=== PATIENT | male | born 1930 | race Caucasian/White ===

== ENCOUNTER 2017-05-24 09:04 | Inpatient (IN) | payer MEDICARE, BC ==
[~2017-05-24] VITALS: Ht 172.7 cm; Wt 83.0 kg
[~2017-05-24 09:04] MED LIST: AMLO5TAB2 PO; ASPI81TA31 PO; ASPI81TA44 PO; BENA40TA2 PO
[2017-05-24] MEDS ORDERED: MEMANTINE HCL 10 MG TABLET PO (09:25)
[2017-05-24] MEDS ORDERED: ATORVASTATIN 20 MG TABLET PO (09:25)
[2017-05-24] MEDS ORDERED: ALPR0.25 PO (09:25)
[2017-05-24] MEDS ORDERED: HYDROCHLOROTHIAZIDE 25 MG TAB PO (09:25)
[2017-05-24] MEDS ORDERED: DONEPEZIL HCL 10 MG TABLET PO (09:25)
[2017-05-24 09:36] LABS: ABG HCO3 34.2 mmol/L; ABG PCO2 74.7 mmHg (35.0-45.0); ABG PH 7.278 (7.350-7.450); ABG PO2 68.3 mmHg (75.0-100.0); ABG SITE LEFT RADIAL; COHb 1.9 % (0.5-1.5); MetHb 0.3 % (0.0-1.5); O2Hb 89.3 % (94.0-97.0); VENT MODE Nasal Cannula
[2017-05-24 09:38] LABS: HEMOGLOBIN 12.8 g/dL (12.5-16.3); MEAN CORPUSCULAR HEMOGLOBIN 32.3 uug (23.8-33.4); RED BLOOD CELL COUNT(AUTO) 3.96 MIL/uL (4.06-5.63)
[2017-05-24 09:40] LABS: BASOPHILS % (AUTO) 0.1 % (0.0-2.0); HEMATOCRIT 38.4 % (36.7-47.1); LYMPHOCYTES # (AUTO) 0.4 K/uL (20.0-40.0); LYMPHOCYTES % (AUTO) 1.3 % (20.5-51.5); MEAN CORPUSCULAR HGB CONC 33 g/dL (32.5-36.3); MONOCYTES # (AUTO) 1.8 K/uL (2.0-10.0); MONOCYTES % (AUTO) 5.8 % (0.0-11.0); NEUTROPHILS % (AUTO) 92.8 % (38.5-71.5); PLATELET COUNT (AUTO) 211 K/uL (152-348)
[2017-05-24 09:44] LABS: WHITE BLOOD COUNT (AUTO) 31.2 K/uL (3.6-10.2)
[2017-05-24] MEDS ORDERED: AZITHROMYCIN IV 500 MG in IV DEXTROSE 5% 250 ML IV ONE (09:45)
[2017-05-24] MEDS ORDERED: CEFTRIAXONE 1 G in IV DEXTROSE 5% 50 ML IV ONE (09:45)
[2017-05-24] MEDS ORDERED: METRONIDAZOLE 500 MG/NS 100ML 100 ML IV ONE ×2 (09:45→11:26)
[2017-05-24 09:56] LABS: ALANINE AMINOTRANSFERASE 27 U/L (16-63); ALKALINE PHOSPHATASE 77 U/L (50-136); ASPARTATE AMINOTRANSFERASE 20 U/L (15-37); BILIRUBIN,DIRECT 0.2 mg/dL (0.0-0.2); BILIRUBIN,TOTAL 0.8 mg/dL (0.2-1.0); CARBON DIOXIDE 35 mmol/L (21-32); CHLORIDE 97 mmol/L (98-107); CREATININE 1.2 mg/dL (0.6-1.3); GLUCOSE 133 mg/dL (74-106); POTASSIUM 3.8 mmol/L (3.5-5.1); TOTAL PROTEIN, SERUM 7.5 g/dL (6.4-8.2); UREA NITROGEN, BLOOD 32 mg/dL (7-18)
[2017-05-24 09:57] LABS: BAND % (MANUAL) 8 % (0-10); LYMPHOCYTES % (MANUAL) 1 % (20-40); METAMYELOCYTES % 2 % (0-1); MONOCYTES % (MANUAL) 3 % (2-10); MYELOCYTES % 1 % (0-0)
[2017-05-24 09:58] LABS: NEUTROPHILS % (MANUAL) 85 % (42-75)
[2017-05-24] MEDS ORDERED: CEFTRIAXONE 1 G VIAL ONE ×2 (10:32→23:04)
[2017-05-24] MEDS ORDERED: IV NORMAL SALINE 1000 ML BAG IV ONE (10:45)
[2017-05-24] MEDS ORDERED: AZITHROMYCIN 500 MG VIAL IV ONE ×2 (12:40→23:04)
[2017-05-24 15:49] LABS: *BILIRUBIN,URIN NEGATIVE (NEGATIVE); *BLOOD, URINE NEGATIVE (NEGATIVE); *CLARITY,URINE CLEAR (CLEAR); *COLOR,URINE DARK YELLOW (YELLOW); *KETONES,URINE NEGATIVE (NEGATIVE); *PROTEIN,URINE 1+ (NEGATIVE); *UROBILINOGEN,URINE 0.2 E.U./dl (NORMAL); LEUKOCYTE ESTERASE ,URINE NEGATIVE (NEGATIVE); NITRITE, URINE NEGATIVE (NEGATIVE); UGLUCOSE NEGATIVE (NEGATIVE)
[2017-05-24 16:12] LABS: MUCUS,URINE MANY /LPF (0-FEW); RBC,URINE 0-3 /HPF (0-3); WBC,URINE 0-3 /HPF (0-3)
[2017-05-24 20:10] VITALS: BP 153/73
[2017-05-24] MEDS ORDERED: ACETAMINOPHEN 325 MG TABLET PO PRN (21:15)
[2017-05-24] MEDS ORDERED: MORPHINE SULFATE 2 MG/1 ML DISP.SYRIN IV PRN (21:15)
[2017-05-24] MEDS ORDERED: CEFTRIAXONE 1 G in IV DEXTROSE 5% 50 ML IV SCH (21:15)
[2017-05-24] MEDS ORDERED: ONDANSETRON 4 MG/2 ML VIAL IV PRN (21:15)
[2017-05-24] MEDS ORDERED: ALBUTEROL SULFATE 2.5 MG/3 ML NEBU NEB PRN (21:15)
[2017-05-24] MEDS ORDERED: ENALAPRILAT DIHYDRATE INJ 2.5 MG in IV NORMAL SALINE 50 ML IV PRN (21:15)
[2017-05-24] MEDS: AZITHROMYCIN IV 500 MG in IV DEXTROSE 5% 250 ML IV SCH (23:07)
[2017-05-25] VITALS: BP 111/55
[2017-05-25 04:00] VITALS: BP 130/63
[2017-05-25 06:46] LABS: BASOPHILS % (AUTO) 0.1 % (0.0-2.0); HEMATOCRIT 39.6 % (36.7-47.1); HEMOGLOBIN 12.9 g/dL (12.5-16.3); LYMPHOCYTES # (AUTO) 0.7 K/uL (20.0-40.0); LYMPHOCYTES % (AUTO) 2.5 % (20.5-51.5); MEAN CORPUSCULAR HEMOGLOBIN 31.9 uug (23.8-33.4); MEAN CORPUSCULAR HGB CONC 33 g/dL (32.5-36.3); MEAN CORPUSCULAR VOLUME 98.1 fL (73.0-96.2); MONOCYTES # (AUTO) 1.3 K/uL (2.0-10.0); MONOCYTES % (AUTO) 4.7 % (0.0-11.0); NEUTROPHILS # (AUTO) 26.2 K/uL (1.8-8.9); NEUTROPHILS % (AUTO) 92.7 % (38.5-71.5); PLATELET COUNT (AUTO) 192 K/uL (152-348); RED BLOOD CELL COUNT(AUTO) 4.04 MIL/uL (4.06-5.63); WHITE BLOOD COUNT (AUTO) 28.2 K/uL (3.6-10.2)
[2017-05-25] MEDS: PANTOPRAZOLE SODIUM 40 MG TABLET.DR PO SCH (07:00)
[2017-05-25 07:20] LABS: ALANINE AMINOTRANSFERASE 22 U/L (16-63); ALKALINE PHOSPHATASE 81 U/L (50-136); ASPARTATE AMINOTRANSFERASE 17 U/L (15-37); BILIRUBIN,TOTAL 0.5 mg/dL (0.2-1.0); CARBON DIOXIDE 32 mmol/L (21-32); CHLORIDE 102 mmol/L (98-107); CHOLESTEROL 107 mg/dL (<200); CREATININE 0.9 mg/dL (0.6-1.3); GLUCOSE 117 mg/dL (74-106); HDL CHOLESTEROL 53 mg/dL (40-60); MAGNESIUM 2.3 mg/dL (1.8-2.4); PHOSPHOROUS 3.2 mg/dL (2.5-4.9); POTASSIUM 4.1 mmol/L (3.5-5.1); TOTAL PROTEIN, SERUM 7.4 g/dL (6.4-8.2); TRIGLYCERIDES 51 MG/DL (30-150); UREA NITROGEN, BLOOD 28 mg/dL (7-18)
[2017-05-25 07:26] LABS: THYROID STIMULATING HORMONE 1.731 mIU/mL (0.358-3.740)
[2017-05-25] MEDS ORDERED: MORPHINE SULFATE 4 MG/1 ML DISP.SYRIN IV PRN (08:15)
[2017-05-25 10:02] LABS: BAND % (MANUAL) 13 % (0-10); LYMPHOCYTES % (MANUAL) 3 % (20-40); MONOCYTES % (MANUAL) 5 % (2-10); NEUTROPHILS % (MANUAL) 79 % (42-75)
[2017-05-25 11:43] VITALS: BP 145/67
[2017-05-25 15:28] VITALS: BP 138/73
[2017-05-25] MEDS: FUROSEMIDE 20 MG/2 ML VIAL IV SCH (17:35)
[2017-05-25 19:00] VITALS: BP 132/72
[2017-05-25] MEDS: LACTOBACILLUS RHAMNOSUS GG 1 EACH CAPSULE PO SCH (20:53)
[2017-05-25] MEDS: AZITHROMYCIN IV 500 MG in IV DEXTROSE 5% 250 ML IV SCH (20:53)
[2017-05-25] MEDS: DOCUSATE SODIUM 100 MG CAPSULE PO SCH (20:53)
[2017-05-25] MEDS ORDERED: DOCUSATE SODIUM 250 MG CAPSULE PO SCH (21:00)
[2017-05-25] MEDS: CEFTRIAXONE 1 G in IV DEXTROSE 5% 50 ML IV SCH (22:22)
[2017-05-25 22:35] LABS: ABG BASE EXCESS 6.4 mmol/L; ABG HCO3 34.9 mmol/L; ABG PH 7.309 (7.350-7.450); ABG PO2 62.4 mmHg (75.0-100.0); ABG SITE LEFT RADIAL; ABG TOTAL HEMOGLOBIN 12.3 G/dL (13.5-18.0); COHb 1.6 % (0.5-1.5); MetHb 0.2 % (0.0-1.5); VENT MODE BIPAP
[2017-05-26 04:00] VITALS: BP 139/91
[2017-05-26] MEDS: PANTOPRAZOLE SODIUM 40 MG TABLET.DR PO SCH (05:58)
[2017-05-26 06:18] LABS: ABG BASE EXCESS 2.6 mmol/L; ABG HCO3 30.8 mmol/L; ABG PCO2 65.8 mmHg (35.0-45.0); ABG PH 7.288 (7.350-7.450); ABG PO2 81.1 mmHg (75.0-100.0); ABG SITE LEFT RADIAL; ABG TOTAL HEMOGLOBIN 12.4 G/dL (13.5-18.0); COHb 1.4 % (0.5-1.5); MetHb 0.2 % (0.0-1.5); O2Hb 94.3 % (94.0-97.0); VENT MODE BIPAP
[2017-05-26 06:29] LABS: BASOPHILS % (AUTO) 0.1 % (0.0-2.0); HEMATOCRIT 37.1 % (36.7-47.1); HEMOGLOBIN 12.3 g/dL (12.5-16.3); LYMPHOCYTES # (AUTO) 0.6 K/uL (20.0-40.0); LYMPHOCYTES % (AUTO) 2.7 % (20.5-51.5); MEAN CORPUSCULAR HEMOGLOBIN 32.3 uug (23.8-33.4); MEAN CORPUSCULAR HGB CONC 33 g/dL (32.5-36.3); MEAN CORPUSCULAR VOLUME 97.9 fL (73.0-96.2); MONOCYTES % (AUTO) 4.6 % (0.0-11.0); NEUTROPHILS # (AUTO) 19.7 K/uL (1.8-8.9); NEUTROPHILS % (AUTO) 92.6 % (38.5-71.5); PLATELET COUNT (AUTO) 188 K/uL (152-348); RED BLOOD CELL COUNT(AUTO) 3.79 MIL/uL (4.06-5.63); WHITE BLOOD COUNT (AUTO) 21.3 K/uL (3.6-10.2)
[2017-05-26 06:39] LABS: CARBON DIOXIDE 39 mmol/L (21-32); CHLORIDE 102 mmol/L (98-107); CREATININE 0.9 mg/dL (0.6-1.3); GLUCOSE 106 mg/dL (74-106); MAGNESIUM 2.5 mg/dL (1.8-2.4); PHOSPHOROUS 2.8 mg/dL (2.5-4.9); POTASSIUM 3.8 mmol/L (3.5-5.1); UREA NITROGEN, BLOOD 31 mg/dL (7-18)
[2017-05-26] MEDS: FUROSEMIDE 20 MG/2 ML VIAL IV SCH (08:15)
[2017-05-26] MEDS: LACTOBACILLUS RHAMNOSUS GG 1 EACH CAPSULE PO SCH ×2 (08:58→21:24)
[2017-05-26] MEDS: ASPIRIN EC 81 MG TABLET.DR PO SCH (08:58)
[2017-05-26 11:39] VITALS: BP 127/71
[2017-05-26 20:00] VITALS: BP 120/73
[2017-05-26] MEDS: DOCUSATE SODIUM 100 MG CAPSULE PO SCH (21:25)
[2017-05-26] MEDS: AZITHROMYCIN IV 500 MG in IV DEXTROSE 5% 250 ML IV SCH (21:25)
[2017-05-26] MEDS: CEFTRIAXONE 1 G in IV DEXTROSE 5% 50 ML IV SCH (22:41)
[2017-05-27 04:08] VITALS: BP 118/88
[2017-05-27] MEDS: PANTOPRAZOLE SODIUM 40 MG TABLET.DR PO SCH (06:44)
[2017-05-27 07:03] LABS: BASOPHILS % (AUTO) 0.2 % (0.0-2.0); EOSINOPHILS % (AUTO) 0.4 % (0.0-7.0); HEMATOCRIT 36.3 % (36.7-47.1); HEMOGLOBIN 11.8 g/dL (12.5-16.3); LYMPHOCYTES # (AUTO) 0.5 K/uL (20.0-40.0); LYMPHOCYTES % (AUTO) 4.2 % (20.5-51.5); MEAN CORPUSCULAR HEMOGLOBIN 31.8 uug (23.8-33.4); MEAN CORPUSCULAR HGB CONC 33 g/dL (32.5-36.3); MEAN CORPUSCULAR VOLUME 97.6 fL (73.0-96.2); MONOCYTES # (AUTO) 0.7 K/uL (2.0-10.0); MONOCYTES % (AUTO) 5.5 % (0.0-11.0); NEUTROPHILS # (AUTO) 11.1 K/uL (1.8-8.9); NEUTROPHILS % (AUTO) 89.7 % (38.5-71.5); PLATELET COUNT (AUTO) 205 K/uL (152-348); RED BLOOD CELL COUNT(AUTO) 3.72 MIL/uL (4.06-5.63); WHITE BLOOD COUNT (AUTO) 12.4 K/uL (3.6-10.2)
[2017-05-27 07:18] LABS: ALANINE AMINOTRANSFERASE 23 U/L (16-63); ALKALINE PHOSPHATASE 67 U/L (50-136); ASPARTATE AMINOTRANSFERASE 19 U/L (15-37); BILIRUBIN,TOTAL 0.3 mg/dL (0.2-1.0); CARBON DIOXIDE 39 mmol/L (21-32); CHLORIDE 103 mmol/L (98-107); CREATININE 0.7 mg/dL (0.6-1.3); GLUCOSE 110 mg/dL (74-106); MAGNESIUM 2.1 mg/dL (1.8-2.4); PHOSPHOROUS 2.2 mg/dL (2.5-4.9); POTASSIUM 3.8 mmol/L (3.5-5.1); TOTAL PROTEIN, SERUM 6.2 g/dL (6.4-8.2); UREA NITROGEN, BLOOD 29 mg/dL (7-18)
[2017-05-27] MEDS: FUROSEMIDE 20 MG/2 ML VIAL IV SCH (09:07)
[2017-05-27] MEDS: ASPIRIN EC 81 MG TABLET.DR PO SCH (09:07)
[2017-05-27] MEDS: LACTOBACILLUS RHAMNOSUS GG 1 EACH CAPSULE PO SCH ×2 (09:07→20:29)
[2017-05-27] MEDS ORDERED: POTASSIUM PHOSPHATE MM 7.5 MMOL in IV DEXTROSE 5% 100 ML IV ONE (13:00)
[2017-05-27 13:33] VITALS: BP 155/71
[2017-05-27 16:16] VITALS: BP 135/81
[2017-05-27 20:00] VITALS: BP 123/84
[2017-05-27] MEDS: DOCUSATE SODIUM 100 MG CAPSULE PO SCH (20:29)
[2017-05-27] MEDS: AZITHROMYCIN IV 500 MG in IV DEXTROSE 5% 250 ML IV SCH (20:29)
[2017-05-27] MEDS: CEFTRIAXONE 1 G in IV DEXTROSE 5% 50 ML IV SCH (22:09)
[2017-05-28 04:00] VITALS: BP 151/77
[2017-05-28] MEDS: PANTOPRAZOLE SODIUM 40 MG TABLET.DR PO SCH (05:10)
[2017-05-28 06:48] LABS: BASOPHILS % (AUTO) 0.1 % (0.0-2.0); EOSINOPHILS # (AUTO) 0.1 K/uL (0.0-0.7); EOSINOPHILS % (AUTO) 1.3 % (0.0-7.0); HEMATOCRIT 36.3 % (36.7-47.1); LYMPHOCYTES # (AUTO) 0.6 K/uL (20.0-40.0); LYMPHOCYTES % (AUTO) 5.9 % (20.5-51.5); MEAN CORPUSCULAR HEMOGLOBIN 32.2 uug (23.8-33.4); MEAN CORPUSCULAR HGB CONC 33 g/dL (32.5-36.3); MEAN CORPUSCULAR VOLUME 97.5 fL (73.0-96.2); MONOCYTES # (AUTO) 0.7 K/uL (2.0-10.0); MONOCYTES % (AUTO) 6.9 % (0.0-11.0); NEUTROPHILS # (AUTO) 8.7 K/uL (1.8-8.9); NEUTROPHILS % (AUTO) 85.8 % (38.5-71.5); PLATELET COUNT (AUTO) 199 K/uL (152-348); RED BLOOD CELL COUNT(AUTO) 3.72 MIL/uL (4.06-5.63); WHITE BLOOD COUNT (AUTO) 10.2 K/uL (3.6-10.2)
[2017-05-28 06:50] LABS: CHLORIDE 102 mmol/L (98-107); CREATININE 0.6 mg/dL (0.6-1.3); GLUCOSE 102 mg/dL (74-106); MAGNESIUM 1.9 mg/dL (1.8-2.4); PHOSPHOROUS 2.2 mg/dL (2.5-4.9); POTASSIUM 3.5 mmol/L (3.5-5.1); UREA NITROGEN, BLOOD 22 mg/dL (7-18)
[2017-05-28 07:08] LABS: CARBON DIOXIDE 40 mmol/L (21-32)
[2017-05-28 07:32] VITALS: BP 154/79
[2017-05-28 08:53] LABS: ABG HCO3 44.2 mmol/L; ABG PCO2 72.7 mmHg (35.0-45.0); ABG PH 7.402 (7.350-7.450); ABG PO2 69.1 mmHg (75.0-100.0); ABG SITE LEFT RADIAL; ABG TOTAL HEMOGLOBIN 12.9 G/dL (13.5-18.0); COHb 1.8 % (0.5-1.5); MetHb 0.1 % (0.0-1.5); O2Hb 92.2 % (94.0-97.0); VENT MODE Nasal Cannula
[2017-05-28] MEDS: ASPIRIN EC 81 MG TABLET.DR PO SCH (08:57)
[2017-05-28] MEDS: FUROSEMIDE 20 MG/2 ML VIAL IV SCH (08:57)
[2017-05-28] MEDS: LACTOBACILLUS RHAMNOSUS GG 1 EACH CAPSULE PO SCH ×2 (08:57→21:24)
[2017-05-28] MEDS: POTASSIUM CHLORIDE 20 MEQ TAB.PRT.SR PO SCH ×3 (11:17→20:00)
[2017-05-28 11:23] VITALS: BP 146/72
[2017-05-28] MEDS: POTASSIUM PHOSPHATE MM 7.5 MMOL in IV DEXTROSE 5% 100 ML IV SCH ×2 (11:23→14:35)
[2017-05-28] MEDS ORDERED: POTASSIUM PHOSPHATE MM 7.5 MMOL in IV DEXTROSE 5% 100 ML IV ONE (12:45)
[2017-05-28] MEDS: ACETAzolamide SODIUM 500 MG VIAL IV SCH (12:50)
[2017-05-28 15:10] VITALS: BP 155/71
[2017-05-28] MEDS ORDERED: DIATR MEGLU/DIATRIZOATE SODIUM 30 ML SOLUTION ONE (17:53)
[2017-05-28] MEDS ORDERED: IOHEXOL 300MG/ML 100 ML INFUS..BTL ONE (18:20)
[2017-05-28] MEDS ORDERED: IV NORMAL SALINE 250 ML IV ONE (18:20)
[2017-05-28] MEDS ORDERED: NORMAL SALINE FLUSH 10 ML DISP.SYRIN ONE (18:20)
[2017-05-28 20:00] VITALS: BP 160/84
[2017-05-28] MEDS: DOCUSATE SODIUM 100 MG CAPSULE PO SCH ×2 (21:57→21:58)
[2017-05-28] MEDS: AZITHROMYCIN IV 500 MG in IV DEXTROSE 5% 250 ML IV SCH (22:12)
[2017-05-28] MEDS: CEFTRIAXONE 1 G in IV DEXTROSE 5% 50 ML IV SCH (23:33)
[2017-05-29 04:55] VITALS: BP 165/84
[2017-05-29] MEDS: PANTOPRAZOLE SODIUM 40 MG TABLET.DR PO SCH (06:28)
[2017-05-29 07:05] LABS: BASOPHILS % (AUTO) 0.2 % (0.0-2.0); EOSINOPHILS # (AUTO) 0.2 K/uL (0.0-0.7); EOSINOPHILS % (AUTO) 2.2 % (0.0-7.0); LYMPHOCYTES # (AUTO) 0.8 K/uL (20.0-40.0); LYMPHOCYTES % (AUTO) 7.7 % (20.5-51.5); MEAN CORPUSCULAR HEMOGLOBIN 32.5 uug (23.8-33.4); MEAN CORPUSCULAR HGB CONC 34 g/dL (32.5-36.3); MONOCYTES # (AUTO) 0.6 K/uL (2.0-10.0); MONOCYTES % (AUTO) 5.3 % (0.0-11.0); NEUTROPHILS # (AUTO) 8.9 K/uL (1.8-8.9); NEUTROPHILS % (AUTO) 84.6 % (38.5-71.5); PLATELET COUNT (AUTO) 217 K/uL (152-348); RED BLOOD CELL COUNT(AUTO) 4.15 MIL/uL (4.06-5.63); WHITE BLOOD COUNT (AUTO) 10.5 K/uL (3.6-10.2)
[2017-05-29 07:09] LABS: CARBON DIOXIDE 34 mmol/L (21-32); CHLORIDE 101 mmol/L (98-107); CREATININE 0.7 mg/dL (0.6-1.3); GLUCOSE 102 mg/dL (74-106); PHOSPHOROUS 2.9 mg/dL (2.5-4.9); POTASSIUM 3.8 mmol/L (3.5-5.1); UREA NITROGEN, BLOOD 15 mg/dL (7-18)
[2017-05-29 07:20] LABS: HEMATOCRIT 40.3 % (36.7-47.1)
[2017-05-29 07:21] LABS: HEMOGLOBIN 13.5 g/dL (12.5-16.3)
[2017-05-29] MEDS: FUROSEMIDE 20 MG/2 ML VIAL IV SCH (08:48)
[2017-05-29] MEDS: LACTOBACILLUS RHAMNOSUS GG 1 EACH CAPSULE PO SCH (08:48)
[2017-05-29] MEDS: ASPIRIN EC 81 MG TABLET.DR PO SCH (08:48)
[2017-05-29 09:08] LABS: ABG BASE EXCESS 4.7 mmol/L; ABG HCO3 32.3 mmol/L; ABG PCO2 61.3 mmHg (35.0-45.0); ABG PO2 70.3 mmHg (75.0-100.0); ABG SITE RIGHT RADIAL; ABG TOTAL HEMOGLOBIN 13.9 G/dL (13.5-18.0); COHb 1.8 % (0.5-1.5); MetHb 0.2 % (0.0-1.5)
[2017-05-29] MEDS: ACETAzolamide SODIUM 500 MG VIAL IV SCH (10:05)
[2017-05-29 11:40] VITALS: BP 140/76
[2017-05-29 15:22] VITALS: BP 162/73
[2017-05-29] MEDS ORDERED: AMLODIPINE 5 MG TABLET PO SCH (15:45)
[2017-05-29 15:52] VITALS: BP 100/57
[2017-05-29] MEDS ORDERED: LACT1CAP57 PO (17:07)
[2017-05-29] MEDS ORDERED: ALPR0.255 PO (17:07)
[2017-05-29] MEDS ORDERED: ALBU2.5V7 NEB (17:07)
[2017-05-29] MEDS ORDERED: HYDR-4076 PO (17:07)
[2017-05-29] MEDS ORDERED: PANT40TA2 PO (17:07)
[2017-05-29] MEDS ORDERED: DOCU100C36 PO (17:07)
[2017-05-29] MEDS ORDERED: FURO-152 PO (17:07)
[2017-05-29] MEDS ORDERED: ACET325T53 PO (17:07)
[2017-05-29] MEDS ORDERED: BENAZEPRIL PO (17:07)
[2017-05-29] MEDS ORDERED: ACET500C43 PO (17:07)
[2017-05-29] MEDS ORDERED: MULT1TAB73 PO (17:07)
[2017-05-29] MEDS ORDERED: ACID1TAB4 PO (17:07)
[2017-05-29] MEDS ORDERED: BISA10SU61 RC (17:07)
[2017-05-29] MEDS ORDERED: ASPI-618 PO (17:07)
[2017-05-29] MEDS ORDERED: AZIT500V8 IV (17:07)
[2017-05-29] MEDS ORDERED: CEFT1VIA15 IV (17:07)
[2017-05-29] MEDS ORDERED: ATOR10TA PO (17:07)
== END 2017-05-29 19:38 | DRG 871 ==
LOC: ER 09:04 → TELE 20:06 → MED 05-25 16:50
PROVIDERS: ADMIT Internal Medicine; ATTEND Internal Medicine
PROC: 5A09457 Assistance with Respiratory Ventilation, 24-96 Consecutive Hours, Continuous Positive Airway Pressure (ICD-10-PCS; principal; 2017-05-24)
PROC: 5A09357 Assistance with Respiratory Ventilation, Less than 24 Consecutive Hours, Continuous Positive Airway Pressure (ICD-10-PCS; 2017-05-25)
DX: A41.9 Sepsis, unspecified organism (principal); J69.0 Pneumonitis due to inhalation of food and vomit; I21.A1 Myocardial infarction type 2; E43 Unspecified severe protein-calorie malnutrition; J96.21 Acute and chronic respiratory failure with hypoxia; I50.33 Acute on chronic diastolic (congestive) heart failure; G92 Toxic encephalopathy; J96.22 Acute and chronic respiratory failure with hypercapnia; J98.11 Atelectasis; D68.59 Other primary thrombophilia; E87.3 Alkalosis; W18.30XA Fall on same level, unspecified, initial encounter; G30.9 Alzheimer's disease, unspecified; F02.80 Dementia in other diseases classified elsewhere, unspecified severity, without behavioral disturbance, psychotic disturbance, mood disturbance, and anxiety; J44.9 Chronic obstructive pulmonary disease, unspecified; Z68.27 Body mass index [BMI] 27.0-27.9, adult; G47.33 Obstructive sleep apnea (adult) (pediatric); I67.2 Cerebral atherosclerosis; N40.0 Benign prostatic hyperplasia without lower urinary tract symptoms; R32 Unspecified urinary incontinence; R07.81 Pleurodynia; Y92.230 Patient room in hospital as the place of occurrence of the external cause; I25.2 Old myocardial infarction; I25.10 Atherosclerotic heart disease of native coronary artery without angina pectoris; Z74.09 Other reduced mobility; E78.5 Hyperlipidemia, unspecified; D64.9 Anemia, unspecified; D32.9 Benign neoplasm of meninges, unspecified; Z79.899 Other long term (current) drug therapy; Z79.82 Long term (current) use of aspirin; M19.90 Unspecified osteoarthritis, unspecified site; I11.0 Hypertensive heart disease with heart failure
CPT/HCPCS: 36415; 36600; 70030-TC; 70450; 71045; 71101; 74018; 83605; 83735; 84100; 84443; 85025; 87040; 87086; 87400; 93005; 93307; 94660; 94664; 97116; 97530; A4663; J0456; J0696; J1120; J1940; J3490; J7030; J7050; J7060; Q9963; Q9967

== ENCOUNTER 2017-05-29 19:01 | Inpatient (IN) | payer MEDICARE, BC ==
[~2017-05-29] VITALS: Ht 172.7 cm; Wt 83.0 kg
[~2017-05-29 19:01] MED LIST changes: +ACET325T53 PO; +ACET500C43 PO; +ACID1TAB4 PO; +ALBU2.5V7 NEB; +ALPR0.25 PO; +ALPR0.255 PO; +ASPI-618 PO; -ASPI81TA31 PO; +ATOR10TA PO; +ATORVASTATIN 20 MG TABLET PO; +AZIT500V8 IV; +BENAZEPRIL PO; +BISA10SU61 RC; +CEFT1VIA15 IV; +DOCU100C36 PO; +DONEPEZIL HCL 10 MG TABLET PO; +FURO-152 PO; +HYDR-4076 PO; +HYDROCHLOROTHIAZIDE 25 MG TAB PO; +LACT1CAP57 PO; +MEMANTINE HCL 10 MG TABLET PO; +MULT1TAB73 PO; +PANT40TA2 PO
[2017-05-29 19:39] VITALS: BP 132/53
--- NOTE | 2017-05-29 19:40 | NUR ---
Receive patient via from [facility] via gurney, awake, confused but verbally responsive. Provided routine admission. Physical assessment done. Noted to have edema on both ankle. Vital signs taken and recorded, WNL.Patient came without oxygen, O2 sat @ 87-88%. MD Dr. Romero made aware of the admission and the status of the patient and ordered @2LPM via NC. O2 checked again with saturation of 95%. Denies of any pain at this time. Safety measures provided, bed on low position. 1:1 Sitter at bedside. Will monitor patient.
[2017-05-29] MEDS ORDERED: ACIDOPHILUS/BULGARICUS CHEW TAB PO SCH (21:00)
[2017-05-29] MEDS ORDERED: ACETAMINOPHEN 325 MG TABLET PO PRN (21:00)
[2017-05-29] MEDS: DOCUSATE SODIUM 100 MG CAPSULE PO SCH (21:00)
[2017-05-29] MEDS ORDERED: hydrALAZINE HCL 25 MG TABLET PO PRN (21:00)
[2017-05-29] MEDS ORDERED: ALPRAZOLAM 0.25 MG TABLET PO PRN (21:00)
[2017-05-29] MEDS ORDERED: DONEPEZIL HCL 10 MG PO SCH (21:00)
[2017-05-29] MEDS ORDERED: BISACODYL 10 MG SUPP.RECT RC PRN (21:00)
--- NOTE | 2017-05-29 22:00 | NUR ---
Due to MD order pt placed on BiPAP with the following settings of I-15, E-5, PS-10, RR-14, FIO2-30%. No respiratory distress noted. Cont. pulse ox on. Mopilex placed under the mask. Alarms on and audible. MARCI Torres notified.
[2017-05-29] MEDS: ATORVASTATIN 10 MG TABLET PO SCH (22:12)
[2017-05-29] MEDS: LACTOBACILLUS RHAMNOSUS GG 1 EACH CAPSULE PO SCH (22:12)
[2017-05-29] MEDS ORDERED: ATORVASTATIN 10 MG TABLET ONE (22:23)
[2017-05-29] MEDS ORDERED: LACTOBACILLUS RHAMNOSUS GG 1 EACH CAPSULE ONE (22:24)
[2017-05-30] MEDS: PANTOPRAZOLE SODIUM 40 MG TABLET.DR PO SCH (06:33)
[2017-05-30] MEDS ORDERED: PANTOPRAZOLE SODIUM 40 MG TABLET.DR PO ONE (06:53)
[2017-05-30] MEDS: BENAZEPRIL HCL 10 MG TABLET PO SCH (08:59)
[2017-05-30] MEDS: LACTOBACILLUS RHAMNOSUS GG 1 EACH CAPSULE PO SCH ×2 (08:59→21:04)
[2017-05-30] MEDS ORDERED: Medication Not On Formulary EA (Multivitamins (Multivitamin) 1 EACH) PO SCH (09:00)
[2017-05-30] MEDS ORDERED: AZITHROMYCIN IV 500 MG in IV DEXTROSE 5% 250 ML IV SCH (09:00)
[2017-05-30] MEDS ORDERED: BENAZEPRIL 10 MG PO SCH (09:00)
[2017-05-30] MEDS ORDERED: MEMANTINE HCL 10 MG PO SCH (09:00)
[2017-05-30] MEDS ORDERED: AZITHROMYCIN 500 MG VIAL IV SCH (09:00)
[2017-05-30] MEDS: MULTIVITAMINS,THERAPEUTIC TABLET PO SCH (09:01)
[2017-05-30] MEDS: FUROSEMIDE 20 MG TABLET PO SCH (09:01)
[2017-05-30] MEDS: ASPIRIN EC 81 MG TABLET.DR PO SCH (09:02)
[2017-05-30] MEDS: AMLODIPINE 5 MG TABLET PO SCH (09:13)
[2017-05-30] MEDS: MEMANTINE HCL 10 MG TABLET PO SCH ×2 (09:18→21:05)
[2017-05-30] MEDS ORDERED: AZITHROMYCIN IV SCH ×2 (12:24→12:25)
[2017-05-30] MEDS ORDERED: NORMAL SALINE IV SCH ×2 (12:24→12:25)
[2017-05-30] MEDS: CEFTRIAXONE 1 G in IV NORMAL SALINE 50 ML IV SCH (13:30)
--- NOTE | 2017-05-30 21:00 | NUR ---
Received patient laying in bed, asleep but arouses easily when called by name. Vital signs taken and recorded. Breathing even and nonlabored. On O2 at 2LPM via NC on 94% saturation. Safety measures provided. 1:1 sitter at bedside. will continue to monitor the patient.
[2017-05-30] MEDS: DONEPEZIL 10 MG TABLET PO SCH (21:04)
[2017-05-30] MEDS: DOCUSATE SODIUM 100 MG CAPSULE PO SCH (21:04)
[2017-05-30] MEDS: ATORVASTATIN 10 MG TABLET PO SCH (21:05)
[2017-05-30 22:04] VITALS: BP 121/80
[2017-05-31] MEDS: PANTOPRAZOLE SODIUM 40 MG TABLET.DR PO SCH (06:37)
[2017-05-31 07:30] VITALS: BP 119/54
[2017-05-31 08:08] LABS: ALANINE AMINOTRANSFERASE 15 U/L (16-63); ALKALINE PHOSPHATASE 69 U/L (50-136); ASPARTATE AMINOTRANSFERASE 17 U/L (15-37); BILIRUBIN,TOTAL 0.3 mg/dL (0.2-1.0); CARBON DIOXIDE 33 mmol/L (21-32); CHLORIDE 98 mmol/L (98-107); CREATININE 0.8 mg/dL (0.6-1.3); GLUCOSE 107 mg/dL (74-106); MAGNESIUM 2.1 mg/dL (1.8-2.4); PHOSPHOROUS 2.8 mg/dL (2.5-4.9); POTASSIUM 3.3 mmol/L (3.5-5.1); TOTAL PROTEIN, SERUM 6.2 g/dL (6.4-8.2); UREA NITROGEN, BLOOD 25 mg/dL (7-18)
[2017-05-31 08:26] LABS: BASOPHILS % (AUTO) 0.1 % (0.0-2.0); EOSINOPHILS # (AUTO) 0.1 K/uL (0.0-0.7); HEMATOCRIT 37.1 % (36.7-47.1); HEMOGLOBIN 12.3 g/dL (12.5-16.3); LYMPHOCYTES # (AUTO) 0.6 K/uL (20.0-40.0); LYMPHOCYTES % (AUTO) 5.7 % (20.5-51.5); MEAN CORPUSCULAR HGB CONC 33 g/dL (32.5-36.3); MEAN CORPUSCULAR VOLUME 96.5 fL (73.0-96.2); MONOCYTES # (AUTO) 0.5 K/uL (2.0-10.0); MONOCYTES % (AUTO) 4.7 % (0.0-11.0); NEUTROPHILS # (AUTO) 9.5 K/uL (1.8-8.9); NEUTROPHILS % (AUTO) 88.5 % (38.5-71.5); PLATELET COUNT (AUTO) 231 K/uL (152-348); RED BLOOD CELL COUNT(AUTO) 3.85 MIL/uL (4.06-5.63); WHITE BLOOD COUNT (AUTO) 10.8 K/uL (3.6-10.2)
[2017-05-31] MEDS: LACTOBACILLUS RHAMNOSUS GG 1 EACH CAPSULE PO SCH ×2 (09:14→20:34)
[2017-05-31] MEDS: MEMANTINE HCL 10 MG TABLET PO SCH ×2 (09:14→20:34)
[2017-05-31] MEDS: ASPIRIN EC 81 MG TABLET.DR PO SCH (09:14)
[2017-05-31] MEDS: MULTIVITAMINS,THERAPEUTIC TABLET PO SCH (09:14)
[2017-05-31] MEDS: FUROSEMIDE 20 MG TABLET PO SCH (09:14)
[2017-05-31] MEDS: BENAZEPRIL HCL 10 MG TABLET PO SCH (09:16)
[2017-05-31] MEDS: AMLODIPINE 5 MG TABLET PO SCH (09:17)
[2017-05-31] MEDS: CEFTRIAXONE 1 G in IV NORMAL SALINE 50 ML IV SCH (09:44)
[2017-05-31] MEDS: POTASSIUM CHLORIDE 20 MEQ TAB.PRT.SR PO SCH ×2 (11:44→17:12)
--- NOTE | 2017-05-31 13:51 | NUR ---
SBAR report received, board updated. Pt assessed, awake, alert, and oriented x2. Pt reports no pain or discomfort, with no acute distress noted. Pt is breathing with ease on 2L O2 via NC at 99%. Pt compliant with all routine morning medications, taking pills whole. IV flushed patent, and intact. Bed in locked and lowest position with side rails up x2. Pt actively participated with all scheduled therapies for today. All safety and comfort measures met. 1:1 sitter present at bedside. Call light within reach. Diaper changed for voiding x1. Will continue to monitor.
--- NOTE | 2017-05-31 16:00 | NUR ---
ADMIT NOTE ARRIVED TO UNIT VIA AMBULANCE. ALONG WITH PT. TAKEN TO ROOM ORIENTED TO UNIT AND SURROUNDINGS. AMBULATORY WITH ASSISTANCE. VITAL SIGNS STABLE
--- NOTE | 2017-05-31 19:30 | NUR ---
Received patient from day shift nurse. shift report at bedside. patient is a/ox 2-3 with no signs of pain, sob, or acute distress at start of shift. vital signs stable at start of shift. pertinent assessment completed. on o2 2L via nc with HOB elevated. bed in low position x2 side rails up. bed alarm checked and on at start of shift. sitter at bedside. call light placed within reach of pt. will continue to monitor pt through shift.
[2017-05-31 20:17] VITALS: BP 115/60
[2017-05-31] MEDS: DOCUSATE SODIUM 100 MG CAPSULE PO SCH (20:34)
[2017-05-31] MEDS: DONEPEZIL 10 MG TABLET PO SCH (20:34)
[2017-05-31] MEDS: ATORVASTATIN 10 MG TABLET PO SCH (20:34)
--- NOTE | 2017-06-01 05:34 | NUR ---
Patient slept intermittently through shift. had periods of confusion during the night. all needs attended to. assisted pt to bathroom x2 during the shift. had 2 BMs during the night. Bipap on through the night. HOB elevated. no signs of sob, pain, or acute distress noted through shift. all meds administered as ordered per md. will endorse to day shift nurse.
[2017-06-01] MEDS: PANTOPRAZOLE SODIUM 40 MG TABLET.DR PO SCH (06:05)
[2017-06-01 08:14] LABS: BASOPHILS % (AUTO) 0.5 % (0.0-2.0); EOSINOPHILS # (AUTO) 0.2 K/uL (0.0-0.7); EOSINOPHILS % (AUTO) 2.2 % (0.0-7.0); HEMATOCRIT 36.6 % (36.7-47.1); HEMOGLOBIN 12.1 g/dL (12.5-16.3); LYMPHOCYTES # (AUTO) 0.6 K/uL (20.0-40.0); LYMPHOCYTES % (AUTO) 8.3 % (20.5-51.5); MEAN CORPUSCULAR HGB CONC 33 g/dL (32.5-36.3); MEAN CORPUSCULAR VOLUME 96.9 fL (73.0-96.2); MONOCYTES # (AUTO) 0.4 K/uL (2.0-10.0); MONOCYTES % (AUTO) 4.8 % (0.0-11.0); NEUTROPHILS # (AUTO) 6.3 K/uL (1.8-8.9); NEUTROPHILS % (AUTO) 84.2 % (38.5-71.5); PLATELET COUNT (AUTO) 242 K/uL (152-348); RED BLOOD CELL COUNT(AUTO) 3.78 MIL/uL (4.06-5.63); WHITE BLOOD COUNT (AUTO) 7.5 K/uL (3.6-10.2)
[2017-06-01 08:30] LABS: CARBON DIOXIDE 34 mmol/L (21-32); CHLORIDE 102 mmol/L (98-107); CREATININE 0.8 mg/dL (0.6-1.3); GLUCOSE 97 mg/dL (74-106); MAGNESIUM 2.1 mg/dL (1.8-2.4); PHOSPHOROUS 2.6 mg/dL (2.5-4.9); POTASSIUM 4.2 mmol/L (3.5-5.1); UREA NITROGEN, BLOOD 25 mg/dL (7-18)
[2017-06-01 10:02] LABS: ABG BASE EXCESS 0.2 mmol/L; ABG PCO2 59.3 mmHg (35.0-45.0); ABG PH 7.292 (7.350-7.450); ABG SITE LEFT RADIAL; ABG TOTAL HEMOGLOBIN 13.4 G/dL (13.5-18.0); COHb 1.4 % (0.5-1.5); MetHb 0.2 % (0.0-1.5); VENT MODE Nasal Cannula
[2017-06-01] MEDS: MEMANTINE HCL 10 MG TABLET PO SCH ×2 (10:04→20:27)
[2017-06-01] MEDS: ASPIRIN EC 81 MG TABLET.DR PO SCH (10:04)
[2017-06-01] MEDS: MULTIVITAMINS,THERAPEUTIC TABLET PO SCH (10:04)
[2017-06-01] MEDS: FUROSEMIDE 20 MG TABLET PO SCH (10:04)
[2017-06-01] MEDS: LACTOBACILLUS RHAMNOSUS GG 1 EACH CAPSULE PO SCH ×2 (10:04→20:27)
[2017-06-01] MEDS: AMLODIPINE 5 MG TABLET PO SCH (10:12)
[2017-06-01] MEDS: BENAZEPRIL HCL 10 MG TABLET PO SCH (10:13)
--- NOTE | 2017-06-01 10:30 | NUR ---
Critical ABG lab value received of pCO2 of 59.3. Pt is asymptomatic, reports no feelings of dizziness, actively participating with Pt, no SOB, unlabored breathing on 2L of O2 via NC. notified. No new orders at this time. Will continue to monitor Pt.
--- NOTE | 2017-06-01 10:50 | NUR ---
acknowledged fluctuation in lab values. No new orders received at this time. Will continue to monitor Pt.
--- NOTE | 2017-06-01 11:35 | NUR ---
Pt seen by Md. New orders received for oxygen titration, with the target O2 saturation being between 88-92%. Pt O2 lowered to 1.5L via NC, O2 saturation ranging between 89-92%, sitting in bed. Will continue to monitor for any change in status. 1:1 sitter at bedside.
--- NOTE | 2017-06-01 13:42 | NUR ---
INTERDISCIPLINARY TEAM CONFERENCE
--- NOTE | 2017-06-01 18:51 | NUR ---
Pt I.K. comfortably sitting in semi-fowlers position with visiting at bedside. Pt consumed 50% of hospital's provided dinner in addition to family supplied snacks. Pt assisted to bathroom by child center assistant, [id number]. Pt denies any SOB O2 sat 90% on 1.5L NC. All safety and comfort measures met. Call light within reach. Will continue to monitor and endorse to oncoming overnight associate.
[2017-06-01 19:30] VITALS: BP 119/56
--- NOTE | 2017-06-01 19:30 | NUR ---
Patient received from day shift nurse. patient sleeping at start of shift with no signs of pain, sob, or acute distress. 1:1 sitter at bedside. on o2 via nc at 1.7L/min. pertinent assessment completed. hob elevated at start of shift. bed in low position x2 side rails up and locked. vital signs stable at start of shift. call light within reach of patient. will continue to monitor pt through shift.
[2017-06-01] MEDS: ATORVASTATIN 10 MG TABLET PO SCH (20:27)
[2017-06-01] MEDS: DONEPEZIL 10 MG TABLET PO SCH (20:27)
[2017-06-01] MEDS: DOCUSATE SODIUM 100 MG CAPSULE PO SCH (20:27)
--- NOTE | 2017-06-01 22:00 | NUR ---
patient noted with diarrhea. informed Dr. Romero. ordered to continue to monitor stool with NNO. will continue to monitor pt through shift.
--- NOTE | 2017-06-02 05:32 | NUR ---
Patient stable through shift. no signs of pain, sob, or acute distress. On Bipap through out the shift. o2 sat level remained stable. hob elevated. all needs attended to. all meds administered as ordered per md. call light within reach of pt. will endorse to day shift nurse.
[2017-06-02] MEDS: PANTOPRAZOLE SODIUM 40 MG TABLET.DR PO SCH (06:06)
[2017-06-02 07:30] VITALS: BP 112/58
[2017-06-02] MEDS: LACTOBACILLUS RHAMNOSUS GG 1 EACH CAPSULE PO SCH ×2 (09:51→20:49)
[2017-06-02] MEDS: ASPIRIN EC 81 MG TABLET.DR PO SCH (09:54)
[2017-06-02] MEDS: FUROSEMIDE 20 MG TABLET PO SCH (09:57)
[2017-06-02] MEDS: MULTIVITAMINS,THERAPEUTIC TABLET PO SCH (09:57)
[2017-06-02] MEDS: MEMANTINE HCL 10 MG TABLET PO SCH ×2 (09:57→20:49)
[2017-06-02] MEDS: ALBUTEROL SULFATE 2.5 MG/3 ML NEBU NEB PRN (15:31)
[2017-06-02] MEDS: BENAZEPRIL HCL 10 MG TABLET PO SCH (17:36)
[2017-06-02] MEDS: AMLODIPINE 5 MG TABLET PO SCH (17:37)
[2017-06-02 18:16] VITALS: BP 124/60
--- NOTE | 2017-06-02 18:17 | NUR ---
Patient is alert and awake, not in acute distress and denies pain at this time. Patient had 2 bowel movements today with formed stools noted, no loose BM noted during the shift. Patient tolerating oxygen titration as ordered, not in acute distress. Encouraged patient to cough and deep breath after breathing treatment was done by the RT. No congestion noted, no SOB at this time. Patient actively participated with his therapeutic exercises and he tolerated them as well. Patient was seen and examined by Dr. Romero, no new orders made at this time. Needs attended promptly, kept comforatable clean and dry, call light placed in easy reach, sitter at bedside at all times.
[2017-06-02 19:30] VITALS: BP 106/49
--- NOTE | 2017-06-02 19:30 | NUR ---
Received patient from day shift nurse. Patient sleeping comfortably at start of shift with no signs of sob, pain, or acute distress. on 1L o2 via nasal canula. HOB elevated at start of shift. Sitter at bedside. Pertinent assessment completed. Vital signs taken & stable at start of shift. call light within reach of patient. will continue to monitor patient through shift.
[2017-06-02] MEDS: DONEPEZIL 10 MG TABLET PO SCH (20:49)
[2017-06-02] MEDS: DOCUSATE SODIUM 100 MG CAPSULE PO SCH (20:49)
[2017-06-02] MEDS: ATORVASTATIN 10 MG TABLET PO SCH (20:49)
--- NOTE | 2017-06-03 05:29 | NUR ---
Patient slept well through the shift. no signs of pain, sob, or acute distress noted. On Bipap through out the night. all needs attended to. all meds administered as ordered. safety measures implemented. call light within reach of pt. will endorse to day shift nurse.
[2017-06-03] MEDS: PANTOPRAZOLE SODIUM 40 MG TABLET.DR PO SCH (06:06)
[2017-06-03] MEDS: MULTIVITAMINS,THERAPEUTIC TABLET PO SCH (08:31)
[2017-06-03] MEDS: LACTOBACILLUS RHAMNOSUS GG 1 EACH CAPSULE PO SCH ×2 (08:31→20:45)
[2017-06-03] MEDS: ASPIRIN EC 81 MG TABLET.DR PO SCH (08:31)
[2017-06-03] MEDS: FUROSEMIDE 20 MG TABLET PO SCH (08:31)
[2017-06-03] MEDS: MEMANTINE HCL 10 MG TABLET PO SCH ×2 (08:32→20:45)
[2017-06-03] MEDS: AMLODIPINE 5 MG TABLET PO SCH (08:43)
[2017-06-03] MEDS: BENAZEPRIL HCL 10 MG TABLET PO SCH (08:43)
--- NOTE | 2017-06-03 17:55 | NUR ---
Patient is alert and awake, not in acute distress and denies pain at this time. Patient tolerating oxygen titration as ordered, not in acute distress. Encouraged patient to cough and deep breath. No congestion noted, no SOB at this time. Needs attended promptly, kept comfortable clean and dry, Family and friends came to visit at bedside. Call light placed in easy reach, sitter at bedside at all times.
[2017-06-03 20:30] VITALS: BP 125/58
[2017-06-03] MEDS: DOCUSATE SODIUM 100 MG CAPSULE PO SCH (20:42)
[2017-06-03] MEDS: DONEPEZIL 10 MG TABLET PO SCH (20:45)
[2017-06-03] MEDS: ATORVASTATIN 10 MG TABLET PO SCH (20:45)
[2017-06-03] MEDS: ALBUTEROL SULFATE 2.5 MG/3 ML NEBU NEB PRN (21:08)
--- NOTE | 2017-06-03 21:08 | NUR ---
Pt placed on BIPAP at this time, RN aware. Settings are IPAP 15, EPAP 5, respiratory rate of 14, FiO2 30%. Pt is awake and alert, no signs of respiratory distress noted. Pt states that the mask is comfortable. Protecta gel placed to protect from skin breakdown. Continuous pulse ox on, saturation is 95%. Alarms are functioning and audible. Will continue to monitor pt throughout shift.
[2017-06-04] MEDS: PANTOPRAZOLE SODIUM 40 MG TABLET.DR PO SCH (06:09)
[2017-06-04 09:00] VITALS: BP 109/57
[2017-06-04] MEDS: BENAZEPRIL HCL 10 MG TABLET PO SCH (09:00)
[2017-06-04] MEDS: AMLODIPINE 5 MG TABLET PO SCH (09:00)
[2017-06-04] MEDS: MULTIVITAMINS,THERAPEUTIC TABLET PO SCH (09:08)
[2017-06-04] MEDS: MEMANTINE HCL 10 MG TABLET PO SCH ×2 (09:08→20:24)
[2017-06-04] MEDS: FUROSEMIDE 20 MG TABLET PO SCH (09:09)
[2017-06-04] MEDS: LACTOBACILLUS RHAMNOSUS GG 1 EACH CAPSULE PO SCH ×2 (09:11→20:22)
[2017-06-04] MEDS: ASPIRIN EC 81 MG TABLET.DR PO SCH (09:12)
--- NOTE | 2017-06-04 16:03 | NUR ---
Patient is awake and alert, in bed at this time, resting after previously participating with PT and OT. Denies pain at this time, not in acute distress, patient is on O2 at 1LPM, tolerating well, saturations at 90%. Patient was kept comfortable, clean and dry. Attended his needs promptly. Patient has a 1:1 sitter by bedside to monitor for safety. Patient continues compliance with treatment plan. Call light is placed in reach.
--- NOTE | 2017-06-04 17:56 | NUR ---
Seen and examined by Dr. Cavazos with new orders at this time, noted and carried out.
--- NOTE | 2017-06-04 19:43 | NUR ---
Received pt on bed alert and awake. Able to make needs known. No acute distress noted. No complaints of pain or discomfort. On room air, able to tolerate it, o2 sat 89%, no shortness of breath was noted. Sitter at bedside. Kept clean, dry and comfortable. Safety and fall precautions observed and maintained. Call light placed within reach. All needs attended.
[2017-06-04] MEDS: DOCUSATE SODIUM 100 MG CAPSULE PO SCH (20:22)
[2017-06-04] MEDS: DONEPEZIL 10 MG TABLET PO SCH (20:22)
[2017-06-04] MEDS: ATORVASTATIN 10 MG TABLET PO SCH (20:22)
[2017-06-04 21:27] VITALS: BP 137/75
--- NOTE | 2017-06-04 22:57 | NUR ---
Pt placed on BIPAP at this time settings IPAP 15, EPAP 5, set resp. rate 14 and FIO2-30%. No resp. distress noted. Pt to be monitored throughout the shift.
--- NOTE | 2017-06-05 05:11 | NUR ---
Pt slept comfortably throughout the shift with no signs of distress noted. No complaints of pain or discomfort. On BiPAP throughout the night. Sitter at bedside. Ambulates to the bathroom with assistance. kept clean, dry and comfortable. Call light placed within reach. Frequently checked for safety. All needs attended.
--- NOTE | 2017-06-05 05:46 | NUR ---
Per pt request, pt removed from BIPAP at this time. No respiratory distress noted. Pt tolerated BIPAP well throughout the night. Pt is now on room air.
[2017-06-05] MEDS: PANTOPRAZOLE SODIUM 40 MG TABLET.DR PO SCH (06:02)
--- NOTE | 2017-06-05 07:45 | NUR ---
Received patient awake, alert x4. On room air, O2 sat at 93%. No SOB noted. No other complaints of discomfort at this time. Call light within reach.
[2017-06-05] MEDS: AMLODIPINE 5 MG TABLET PO SCH (08:40)
[2017-06-05] MEDS: MULTIVITAMINS,THERAPEUTIC TABLET PO SCH (08:41)
[2017-06-05] MEDS: MEMANTINE HCL 10 MG TABLET PO SCH ×2 (08:41→20:12)
[2017-06-05] MEDS: LACTOBACILLUS RHAMNOSUS GG 1 EACH CAPSULE PO SCH ×2 (08:41→20:12)
[2017-06-05] MEDS: BENAZEPRIL HCL 10 MG TABLET PO SCH (08:41)
[2017-06-05] MEDS: FUROSEMIDE 20 MG TABLET PO SCH (08:41)
[2017-06-05] MEDS: ASPIRIN EC 81 MG TABLET.DR PO SCH (08:41)
[2017-06-05 09:25] LABS: ABG BASE EXCESS 4.1 mmol/L; ABG HCO3 30.6 mmol/L; ABG PH 7.371 (7.350-7.450); ABG PO2 63.4 mmHg (75.0-100.0); ABG SITE LEFT RADIAL; ABG TOTAL HEMOGLOBIN 12.8 G/dL (13.5-18.0); COHb 1.4 % (0.5-1.5); MetHb 0.3 % (0.0-1.5)
--- NOTE | 2017-06-05 10:22 | NUR ---
I agree Addendum: 06/05/17 at 1023 by CORTNEY CARLSON OT Amended: Links added.
--- NOTE | 2017-06-05 10:22 | NUR ---
I agree Addendum: 06/05/17 at 1022 by CORTNEY CARLSON OT Amended: Links added.
--- NOTE | 2017-06-05 12:35 | NUR ---
Seen and examined by Tanya/GRINDER HAND ordered O2 at 3lpm/NC. DC-52, Spo2 89% in RA
--- NOTE | 2017-06-05 14:00 | NUR ---
Seen by Dr. Hong, tapered O2 at 0.5lpm O2 saturation maintained at 94%. Informed CT of running at 40s/
--- NOTE | 2017-06-05 19:20 | NUR ---
Received pt on lying comfortably with HOB elevated. Able to make needs known. Pleasant, calm and cooperative to care. Sitter at bedside. No acute distress noted. No complaints of pain or discomfort. On o2 1LPM NC, breathing even and unlabored with normal respiration. kept clean, dry and comfortable. Side rails up x2. Bed alarm on. Bed locked and in lowest position. Call light within reach. All needs attended.
[2017-06-05] MEDS: DONEPEZIL 10 MG TABLET PO SCH (20:11)
[2017-06-05] MEDS: DOCUSATE SODIUM 100 MG CAPSULE PO SCH (20:12)
[2017-06-05] MEDS: ATORVASTATIN 10 MG TABLET PO SCH (20:12)
[2017-06-05 21:04] VITALS: BP 109/70
--- NOTE | 2017-06-06 05:09 | NUR ---
patient's HR noted to be dropping into 40s. call center rn MD made aware. No new orders, just continue to monitor. No SOB noted. Pt on BiPap at this time. No complaints of pain or discomfort. Vital signs BP 135/67, HR 43, RR 18, o2 sat 92%.
--- NOTE | 2017-06-06 05:23 | NUR ---
Pt slept comfortably throughout the shift. Denies pain. Breathing even and unlabored with normal respirations. on BiPAP during the night. Frequently checked for safety. Kept clean, dry and comfortable. Call light within reach. All needs met.
[2017-06-06] MEDS: PANTOPRAZOLE SODIUM 40 MG TABLET.DR PO SCH (06:26)
--- NOTE | 2017-06-06 07:59 | NUR ---
Received patient asleep in room air. O2 sat at 90%. Non-labored breathing with sitter at bedside.
--- NOTE | 2017-06-06 08:23 | NUR ---
I agree Addendum: 06/06/17 at 0824 by CORTNEY CARLSON OT Amended: Links added.
[2017-06-06] MEDS: MULTIVITAMINS,THERAPEUTIC TABLET PO SCH (08:56)
[2017-06-06] MEDS: BENAZEPRIL HCL 10 MG TABLET PO SCH (08:56)
[2017-06-06] MEDS: FUROSEMIDE 20 MG TABLET PO SCH (08:56)
[2017-06-06] MEDS: AMLODIPINE 5 MG TABLET PO SCH (08:57)
[2017-06-06] MEDS: LACTOBACILLUS RHAMNOSUS GG 1 EACH CAPSULE PO SCH ×2 (08:57→20:42)
[2017-06-06] MEDS: MEMANTINE HCL 10 MG TABLET PO SCH ×2 (08:57→20:42)
[2017-06-06] MEDS: ASPIRIN EC 81 MG TABLET.DR PO SCH (08:57)
[2017-06-06 09:12] VITALS: BP 152/62
--- NOTE | 2017-06-06 10:00 | NUR ---
Morning care done, up with occupational therapy. O2 at 89% asymptomatic, no dyspnea or SOB noted. O2 administered at 1lpm.
--- NOTE | 2017-06-06 12:00 | NUR ---
Titrated O2 to 0.5 LPM O2 saturation at 90%. No SOB or other associated S/S
--- NOTE | 2017-06-06 18:00 | NUR ---
Seen and examined by Dr Cavazos, encouraged to titrate O2 and have patient on room air as much as possible.
--- NOTE | 2017-06-06 19:00 | NUR ---
Received patient sitting up in bed. Alert and verbally responsive. Able to make needs known. Sitter at bedside. No c/o pain and discomfort. No acute distress. No SOB. On room air at this time and tolerating well. Patient verbalizes he feels fine. All needs attended to promptly. Call light within reach. Will continue to monitor.
--- NOTE | 2017-06-06 20:11 | NUR ---
Dr. James in unit. Made aware of patient recently having a pulse ranging in from 45-50's bpm. Made him aware that per day shift nurse, Dr. Hong is aware and that pt. is asymptomatic at this time. Pulse at this time is 52. Dr. James with orders for EKG. Patient seen by MD. New orders noted and carried out. Patient is stable at this time.
[2017-06-06 20:20] VITALS: BP 134/69
--- NOTE | 2017-06-06 20:32 | NUR ---
EKG done. Dr. James still in facility and made aware of results. NNO at this time. Per MD he will have patient's seen by a lockstitch back maker tomorrow. Will continue to monitor patient.
[2017-06-06] MEDS: DONEPEZIL 10 MG TABLET PO SCH (20:41)
[2017-06-06] MEDS: DOCUSATE SODIUM 100 MG CAPSULE PO SCH (20:42)
[2017-06-06] MEDS: ATORVASTATIN 10 MG TABLET PO SCH (20:42)
--- NOTE | 2017-06-06 22:20 | NUR ---
Pt placed on BIPAP at this time, with settings of IPAP 15, EPAP 5, respiratory rate of 14, FiO2 30%. Pt is alert and awake, states that BIPAP mask feels comfortable. Pt tolerating BIPAP well at this time. Continuous pulse-ox on, saturation is 97%. No signs of respiratory distress noted. Will continue to monitor pt throughout shift.
--- NOTE | 2017-06-06 22:30 | NUR ---
Patient on BiPAP at this time. Tolerating well. Will continue to monitor.
--- NOTE | 2017-06-07 05:35 | NUR ---
Per pt request, pt taken off BIPAP at this time. No respiratory distress noted. Pt tolerated BIPAP well throughout shift. Pt is now on room air, with saturation 95-96% at this time. RN notified.
--- NOTE | 2017-06-07 06:02 | NUR ---
Patient slept intermittently throughout the night. Sitter at bedside. Tolerated BiPap well. No c/o pain and discomfort. No acute distress. No SOB. Assisted to bathroom. Kept clean and dry. All needs attended to promptly. Call light within reach. Will continue to monitor.
[2017-06-07] MEDS: PANTOPRAZOLE SODIUM 40 MG TABLET.DR PO SCH (06:24)
[2017-06-07 08:00] VITALS: BP 116/64
--- NOTE | 2017-06-07 08:08 | NUR ---
Received patient awake, verbally responsive, not in any form of acute distress. He denies any pain or discomfort at this time. Call light placed within reach. Reminded to use call light when in need of assistance with verbalized understanding. Assisted to his needs.
[2017-06-07] MEDS: BENAZEPRIL HCL 10 MG TABLET PO SCH (09:00)
[2017-06-07] MEDS: AMLODIPINE 5 MG TABLET PO SCH (09:00)
[2017-06-07] MEDS: ASPIRIN EC 81 MG TABLET.DR PO SCH (09:04)
[2017-06-07] MEDS: LACTOBACILLUS RHAMNOSUS GG 1 EACH CAPSULE PO SCH ×2 (09:04→20:08)
[2017-06-07] MEDS: MEMANTINE HCL 10 MG TABLET PO SCH ×2 (09:04→20:08)
[2017-06-07] MEDS: MULTIVITAMINS,THERAPEUTIC TABLET PO SCH (09:04)
[2017-06-07] MEDS: FUROSEMIDE 20 MG TABLET PO SCH (09:05)
--- NOTE | 2017-06-07 10:13 | NUR ---
Patient up with physical therapist ambulating with a cane. He denies any discomfort at this time.
--- NOTE | 2017-06-07 19:30 | NUR ---
Received patient in bed. Alert and verbally responsive. Able to make needs known. Sitter at bedside. No c/o pain and discomfort. No acute distress. No SOB. Tolerating room air fine. All needs attended to promptly. Call light within reach. Will continue to monitor.
[2017-06-07] MEDS: DOCUSATE SODIUM 100 MG CAPSULE PO SCH (20:08)
[2017-06-07] MEDS: DONEPEZIL 10 MG TABLET PO SCH (20:08)
[2017-06-07] MEDS: ATORVASTATIN 10 MG TABLET PO SCH (20:08)
--- NOTE | 2017-06-07 22:51 | NUR ---
Pt placed on BIPAP at this time settings IPAP 15, EPAP 5, set resp. rate 14 and FIO2-30%. No resp. distress noted. Pt is awake and alert and is tolerating the BIPAP settings well. Pt to be monitored throughout the shift.
--- NOTE | 2017-06-08 05:26 | NUR ---
Pt removed from BIPAP at this time. Pt tolerated BIPAP well throughout the night. No respiratory distress noted at this time. Pt is now on room air and is soundly asleep at this time. BVM is at bedside.
--- NOTE | 2017-06-08 06:01 | NUR ---
Patient slept comfortably throughout the night. Still noted with impulsively trying to get OOB to go to the bathroom. Sitter at bed side. Tolerated BiPaP at night. Currently on room air and tolerating well. No c/o pain and discomfort. No acute distress. No SOB. Kept clean and dry. All needs attended to promptly. Call light within reach. Will continue to monitor.
[2017-06-08] MEDS: PANTOPRAZOLE SODIUM 40 MG TABLET.DR PO SCH (06:18)
--- NOTE | 2017-06-08 07:55 | NUR ---
Received patient asleep easily arousable, not in any form of acute distress. No noted signs of pain or discomfort. Call light placed within reach. Sitter at bedside.
[2017-06-08 08:19] VITALS: BP 139/72
--- NOTE | 2017-06-08 08:52 | NUR ---
I agree Addendum: 06/08/17 at 0853 by CORTNEY CARLSON OT Amended: Links added.
--- NOTE | 2017-06-08 08:53 | NUR ---
I agree Addendum: 06/08/17 at 0854 by CORTNEY CARLSON OT Amended: Links added.
--- NOTE | 2017-06-08 09:31 | NUR ---
Patient up ambulating with physical therapist using cane along the hallway
[2017-06-08] MEDS: FUROSEMIDE 20 MG TABLET PO SCH (09:40)
[2017-06-08] MEDS: MULTIVITAMINS,THERAPEUTIC TABLET PO SCH (09:40)
[2017-06-08] MEDS: ASPIRIN EC 81 MG TABLET.DR PO SCH (09:40)
[2017-06-08] MEDS: LACTOBACILLUS RHAMNOSUS GG 1 EACH CAPSULE PO SCH ×2 (09:40→20:38)
[2017-06-08] MEDS: MEMANTINE HCL 10 MG TABLET PO SCH ×2 (09:40→20:38)
[2017-06-08] MEDS: AMLODIPINE 5 MG TABLET PO SCH (09:41)
[2017-06-08] MEDS: BENAZEPRIL HCL 10 MG TABLET PO SCH (09:41)
--- NOTE | 2017-06-08 13:40 | NUR ---
INTERDISCIPLINARY TEAM CONFERENCE
--- NOTE | 2017-06-08 15:02 | NUR ---
Followed up with Dr. Rocha regarding cardio consult and per MD he is aware and will see the patient.
--- NOTE | 2017-06-08 19:30 | NUR ---
Received patient from day shift nurse. Shift report at bedside. Patient is A/O x2-3 with no signs of pain, sob, or acute distress. Patient has a 1:1 sitter at the bedside. Pertinent assessment completed. Vital signs WNL at start of shift. O2 sat currently at 94% in room air. Will continue to monitor o2 sat through out shift to see if patient needs o2. Per day shift nurse Bipap at night was changed to a PRN order. Bed in low position x2 side rails up. Bed alarm on & checked at start of shift. Call light placed within reach of patient. Will continue to monitor patient through shift.
[2017-06-08] MEDS: DONEPEZIL 10 MG TABLET PO SCH (20:38)
[2017-06-08] MEDS: DOCUSATE SODIUM 100 MG CAPSULE PO SCH (20:38)
[2017-06-08] MEDS: ATORVASTATIN 10 MG TABLET PO SCH (20:38)
--- NOTE | 2017-06-09 05:31 | NUR ---
Patient slept well through the shift. No signs of acute distress or sob noted. Kept patient on 2L o2 via nc through shift while asleep. o2 sat WNL. All needs attended to. All meds administered as ordered per md. Sitter at bedside. Call light within reach. Will endorse to day shift nurse.
[2017-06-09] MEDS: PANTOPRAZOLE SODIUM 40 MG TABLET.DR PO SCH (06:06)
[2017-06-09 08:00] VITALS: BP 119/65
[2017-06-09 08:03] LABS: BASOPHILS % (AUTO) 0.2 % (0.0-2.0); EOSINOPHILS # (AUTO) 0.1 K/uL (0.0-0.7); EOSINOPHILS % (AUTO) 1.6 % (0.0-7.0); HEMATOCRIT 37.3 % (36.7-47.1); HEMOGLOBIN 12.2 g/dL (12.5-16.3); LYMPHOCYTES # (AUTO) 0.8 K/uL (20.0-40.0); LYMPHOCYTES % (AUTO) 10.8 % (20.5-51.5); MEAN CORPUSCULAR HEMOGLOBIN 31.7 uug (23.8-33.4); MEAN CORPUSCULAR HGB CONC 33 g/dL (32.5-36.3); MEAN CORPUSCULAR VOLUME 97.2 fL (73.0-96.2); MONOCYTES # (AUTO) 0.4 K/uL (2.0-10.0); MONOCYTES % (AUTO) 6.1 % (0.0-11.0); NEUTROPHILS # (AUTO) 5.8 K/uL (1.8-8.9); NEUTROPHILS % (AUTO) 81.3 % (38.5-71.5); PLATELET COUNT (AUTO) 339 K/uL (152-348); RED BLOOD CELL COUNT(AUTO) 3.84 MIL/uL (4.06-5.63); WHITE BLOOD COUNT (AUTO) 7.1 K/uL (3.6-10.2)
[2017-06-09] MEDS: AMLODIPINE 5 MG TABLET PO SCH (09:00)
[2017-06-09] MEDS: BENAZEPRIL HCL 10 MG TABLET PO SCH (09:00)
[2017-06-09] MEDS ORDERED: SENNOSIDES 1 TABLET PO SCH (09:00)
[2017-06-09 09:10] LABS: CARBON DIOXIDE 32 mmol/L (21-32); CHLORIDE 104 mmol/L (98-107); CREATININE 0.9 mg/dL (0.6-1.3); GLUCOSE 98 mg/dL (74-106); MAGNESIUM 2.2 mg/dL (1.8-2.4); PHOSPHOROUS 3.6 mg/dL (2.5-4.9); POTASSIUM 4.1 mmol/L (3.5-5.1); UREA NITROGEN, BLOOD 16 mg/dL (7-18)
[2017-06-09] MEDS: LACTOBACILLUS RHAMNOSUS GG 1 EACH CAPSULE PO SCH ×2 (10:08→20:10)
[2017-06-09] MEDS: FUROSEMIDE 20 MG TABLET PO SCH (10:08)
[2017-06-09] MEDS: ASPIRIN EC 81 MG TABLET.DR PO SCH (10:08)
[2017-06-09] MEDS: MEMANTINE HCL 10 MG TABLET PO SCH ×2 (10:09→20:10)
[2017-06-09] MEDS: MULTIVITAMINS,THERAPEUTIC TABLET PO SCH (10:09)
--- NOTE | 2017-06-09 14:36 | NUR ---
SBAR report received, board updated. Pt assessed, no evidence of SOB and O2 sat 96% on RA. No acute distress or c/o pain. Pt compliant with all routine medications. 1:1 sitter remains present at bedside throughout this shift. Pt sitting up in high-fowlers in bed. Bed in lowest position, locked, and side rails up x2. Personal items and call light placed within reach. All safety and comfort needs met at this time. Will continue to monitor.
--- NOTE | 2017-06-09 18:35 | NUR ---
Pt seen by MD, no new orders. Pt resting comfortably, sitting up in bed. 1:1 Sitter presently at bedside. Pt denies any c/o pain and SOB at this time. Call light within reach. All safety and comfort measures met. Will continue to monitor and endorse to oncoming shift production supervisor.
--- NOTE | 2017-06-09 19:30 | NUR ---
PT PT RESTING IN BED. NO DISTRESS NOTED. CLEAN AND DRY. 1:1 SITTER AT BEDSIDE FOR SAFETY. WILL CONTINUE TO MONITOR. SAFETY MAINTAINED. BED ALARM ON.
[2017-06-09] MEDS: DOCUSATE SODIUM 100 MG CAPSULE PO SCH (20:09)
[2017-06-09] MEDS: ATORVASTATIN 10 MG TABLET PO SCH (20:10)
[2017-06-09] MEDS: DONEPEZIL 10 MG TABLET PO SCH (20:10)
[2017-06-09 20:48] VITALS: BP 125/55
[2017-06-09 23:01] VITALS: BP 116/55
[2017-06-10] MEDS: PANTOPRAZOLE SODIUM 40 MG TABLET.DR PO SCH (06:20)
--- NOTE | 2017-06-10 06:26 | NUR ---
PT ALERT AND ORIENTED IN BED. NO DISTRESS NOTED. SLEPT WELL THROUGHOUT THE NIGHT. COMPLIANT WITH NURSING CARE. 1:1 SITTER AT BEDSIDE FOR SAFETY. CLEAN AND DRY. SAFETY MAINTAINED. CALL LIGHT WITHIN REACH. BED ALARM ON.
[2017-06-10 09:04] VITALS: BP 101/54
[2017-06-10] MEDS: LACTOBACILLUS RHAMNOSUS GG 1 EACH CAPSULE PO SCH ×2 (10:46→20:25)
[2017-06-10] MEDS: FUROSEMIDE 20 MG TABLET PO SCH (10:46)
[2017-06-10] MEDS: ASPIRIN EC 81 MG TABLET.DR PO SCH (10:46)
[2017-06-10] MEDS: MULTIVITAMINS,THERAPEUTIC TABLET PO SCH (10:46)
[2017-06-10] MEDS: BENAZEPRIL HCL 10 MG TABLET PO SCH (10:47)
[2017-06-10] MEDS: AMLODIPINE 5 MG TABLET PO SCH (10:47)
[2017-06-10] MEDS: MEMANTINE HCL 10 MG TABLET PO SCH ×2 (10:47→21:03)
--- NOTE | 2017-06-10 11:18 | NUR ---
SBAR report received, board updated. Pt assessed, no acute distress noted, no SOB, on 2L O2 sat 96%. Pt denies any pain. Pt compliant with all routine morning medications. Bed in locked and lowest position with side rails up x2. 1:1 sitter present at bedside. All safety and comfort measures met. Call light and personal belongings placed within reach. Will continue to monitor.
--- NOTE | 2017-06-10 18:25 | NUR ---
Pt comfortably resting in bed. V/S stable. Pt reports no pain or discomfort and no evidence of SOB. 1:1 sitter at bedside presently. visited briefly earlier this evening. Safety and comfort needs met. Call light within reach. Will continue to monitor and endorse to oncoming night shift supervisor.
--- NOTE | 2017-06-10 19:30 | NUR ---
RECEIVED PATIENT IN BED NO SOB NO CHEST PAIN, NO COMPLAIN OF PAIN AT THIS TIME, CONT ON 1;1 SITTER FOR SAFETY, KEPT CLEAN AND DRY, ON OXYGEN 2LITER NC, OXYGEN SAT WNL CONT TO MONITOR.
[2017-06-10 19:44] VITALS: BP 111/60
[2017-06-10] MEDS: DONEPEZIL 10 MG TABLET PO SCH (20:25)
[2017-06-10] MEDS: DOCUSATE SODIUM 100 MG CAPSULE PO SCH (20:25)
[2017-06-10] MEDS: ATORVASTATIN 10 MG TABLET PO SCH (20:26)
[2017-06-11] MEDS: PANTOPRAZOLE SODIUM 40 MG TABLET.DR PO SCH (06:07)
--- NOTE | 2017-06-11 06:31 | NUR ---
SLEPT MOST OF THE NIGHT, NO COMPLAIN OF PAIN AT THIS TIME, CONT 1;1 SITTER FOR SAFETY. NO ADVERSE CHANGES NOTED, CALL LIGHT WITHIN REACH.
--- NOTE | 2017-06-11 07:00 | NUR ---
RECEIVED PATIENT IN BED ALERT AND ORIENTED, NO ACUTE DISTRESS NOTED. 1:1 SITTER AT BEDSIDE. RESPIRATIONS ARE EVEN AND UNLABORED. NO COMPLAINTS OF PAIN OR DISCOMFORT. WILL CONTINUE TO MONITOR CLOSELY
[2017-06-11 07:45] VITALS: BP 122/59
[2017-06-11] MEDS: ASPIRIN EC 81 MG TABLET.DR PO SCH (08:27)
[2017-06-11] MEDS: MULTIVITAMINS,THERAPEUTIC TABLET PO SCH (08:27)
[2017-06-11] MEDS: FUROSEMIDE 20 MG TABLET PO SCH (08:27)
[2017-06-11] MEDS: AMLODIPINE 5 MG TABLET PO SCH (08:28)
[2017-06-11] MEDS: BENAZEPRIL HCL 10 MG TABLET PO SCH (08:28)
[2017-06-11] MEDS: LACTOBACILLUS RHAMNOSUS GG 1 EACH CAPSULE PO SCH (08:28)
[2017-06-11] MEDS: MEMANTINE HCL 10 MG TABLET PO SCH (08:28)
[2017-06-11 17:29] VITALS: BP 114/56
--- NOTE | 2017-06-11 19:04 | NUR ---
patient discharged to home with home health services, left with family via private car. discharge papers given and explained to patient and family. patient verbalized understanding. vital signs stable bp 114/56 pr 57 rr 22 o2 sat 89. patient left with following dmes: wheelchair, fww, and bedside commode. instructions on hoe to use then properly and safely given, patient verbalized understanding. patient in taken down with wheelchair, left with family via private car.
== END 2017-06-11 19:00 | disposition home health service (06) | DRG 70 ==
PROVIDERS: ADMIT Physical Medicine & Rehabilitation Pain Medicine; ATTEND Physical Medicine & Rehabilitation Pain Medicine
DX: G93.41 Metabolic encephalopathy (principal); J69.0 Pneumonitis due to inhalation of food and vomit; J96.21 Acute and chronic respiratory failure with hypoxia; E43 Unspecified severe protein-calorie malnutrition; A41.9 Sepsis, unspecified organism; I95.9 Hypotension, unspecified; D68.59 Other primary thrombophilia; J96.22 Acute and chronic respiratory failure with hypercapnia; E87.3 Alkalosis; I50.32 Chronic diastolic (congestive) heart failure; J98.11 Atelectasis; G30.9 Alzheimer's disease, unspecified; F02.80 Dementia in other diseases classified elsewhere, unspecified severity, without behavioral disturbance, psychotic disturbance, mood disturbance, and anxiety; I11.0 Hypertensive heart disease with heart failure; D64.9 Anemia, unspecified; E78.5 Hyperlipidemia, unspecified; I25.10 Atherosclerotic heart disease of native coronary artery without angina pectoris; G47.33 Obstructive sleep apnea (adult) (pediatric); I25.2 Old myocardial infarction; D32.9 Benign neoplasm of meninges, unspecified; I44.0 Atrioventricular block, first degree; J44.9 Chronic obstructive pulmonary disease, unspecified; N40.0 Benign prostatic hyperplasia without lower urinary tract symptoms; I67.2 Cerebral atherosclerosis; I70.0 Atherosclerosis of aorta; M19.90 Unspecified osteoarthritis, unspecified site; R00.1 Bradycardia, unspecified; R26.9 Unspecified abnormalities of gait and mobility
CPT/HCPCS: 36415; 36600; 70030-TC; 71045; 83735; 84100; 85025; 92507; 92523; 93005; 94640; 94660; 94664; 97110; 97112; 97116; 97530; 97535; J0456; J0696; J3490; J7050; J7060; J8499